=== PATIENT | female | born 1960 | race Caucasian/White ===

== ENCOUNTER → 2024-08-18 14:22 | Outpatient (REF) | payer BC, SELFPAY | LOC: HWRAD 14:22 | PROVIDERS: ATTENDING PHYSICIAN Otolaryngology Otolaryngology/Facial Plastic Surgery | DX: D34 Benign neoplasm of thyroid gland (principal) | CPT/HCPCS: 76536 ==

== ENCOUNTER → 2024-10-21 12:21 | Outpatient (REF) | payer BC, SELFPAY | LOC: HWWDC 12:21 | PROVIDERS: ATTENDING PHYSICIAN Obstetrics & Gynecology Gynecology; FAMILY PHYSICIAN Internal Medicine | DX: Z12.31 Encounter for screening mammogram for malignant neoplasm of breast (principal) | CPT/HCPCS: 77063; 77067 ==

== ENCOUNTER → 2025-02-10 09:28 | Outpatient (REF) | payer BC, SELFPAY | LOC: HWRAD 09:28 | PROVIDERS: ATTENDING PHYSICIAN Chiropractor; FAMILY PHYSICIAN Internal Medicine | DX: M54.2 Cervicalgia (principal); M99.01 Segmental and somatic dysfunction of cervical region; M54.6 Pain in thoracic spine; M99.02 Segmental and somatic dysfunction of thoracic region; M54.50 Low back pain, unspecified; M99.03 Segmental and somatic dysfunction of lumbar region; M81.0 Age-related osteoporosis without current pathological fracture | CPT/HCPCS: 72040; 72072; 72100; 73523 ==

== ENCOUNTER → 2025-10-20 10:02 | Outpatient (REF) | payer BC, SELFPAY | LOC: HWRAD 10:02 | PROVIDERS: ATTENDING PHYSICIAN Internal Medicine | DX: R74.8 Abnormal levels of other serum enzymes (principal); R74.01 Elevation of levels of liver transaminase levels; R10.11 Right upper quadrant pain | CPT/HCPCS: 76700 ==

== ENCOUNTER → 2025-10-26 07:30 | Outpatient (REF) | payer BC, SELFPAY | LOC: MRI 07:30 | PROVIDERS: ATTENDING PHYSICIAN Internal Medicine | DX: K86.89 Other specified diseases of pancreas (principal) | CPT/HCPCS: 74183; A9575 ==

== ENCOUNTER 2025-10-28 14:25 | Day surgery (SDC) | payer BC, SELFPAY ==
[2025-10-28 11:15] VITALS: BMI 23.7
[2025-10-28 11:18] VITALS: BMI 23.7
[2025-10-28 12:05] VITALS: BP 138/73
[2025-10-28 13:25] VITALS: BP 99/67
[2025-10-28 13:30] VITALS: BP 106/65
[2025-10-28 13:45] VITALS: BP 110/65
== END 2025-10-28 18:14 | disposition home or self-care (01) ==
LOC: SDS 14:25
PROVIDERS: ATTENDING PHYSICIAN Internal Medicine Gastroenterology
DX: D3A.8 Other benign neuroendocrine tumors (principal); R93.5 Abnormal findings on diagnostic imaging of other abdominal regions, including retroperitoneum; R93.3 Abnormal findings on diagnostic imaging of other parts of digestive tract
CPT/HCPCS: 43242; 43239; 88172; 88173; 88305; 88341; 88342